=== PATIENT | male | born 1935 | race Caucasian/White ===

== ENCOUNTER → 2017-12-28 | Day surgery (SDC) | payer BC ==
[2017-12-11 14:37] VITALS: Ht 181.6 cm; Wt 92.3 kg
[~2017-12-28] VITALS: Ht 181.6 cm; Wt 92.3 kg
[~2017-12-28] MED LIST: ACETAMINOPHEN 325 MG TAB PO PRN; ASPI325T45 PO; ATROPINE SULFATE 0.1 MG/ML 5ML SYR IV PRN; BRIMONIDINE TART 0.2% OP SOLN PER DROP CHARGE ONE; BRIMONIDINE TARTRATE 0.2% 5ML ONE; BSS FLUSH ONE; DORZ1SOL6 OPB; EpHEDrine SULFATE INJ 50 MG/ML AMP IV PRN; LACTATED RINGER'S 1000ML 1,000 ML IV SCH; LATA0.5S OPB; LEVO150T9 PO; LIDOCAINE 3.5% OPH GEL PER APPLICATION CHARGE OPL SCH; LIDOCAINE 4% OP SOLN DROP CHARGE ONE; LIDOCAINE 4% OP SOLN DROP CHARGE OPL SCH; MIDAZOLAM HCL 1 MG/ML 2ML VIAL ONE; MOXIFLOXACIN OPH SOLN PER DROP CHARGE ONE; MOXIFLOXACIN OPH SOLN PER DROP CHARGE OPL SCH; MULT60CA PO; ONDANSETRON INJ 2 MG/ML 2 ML VIAL IV PRN; POVIDONE-IODINE OP SOLN 30 ML BTL ONE; PROPARACAINE 0.5% OP SOLN PER DROP CHARGE OPL SCH; SERT100T PO; SIMV20TA2 PO; TOBRAMYCIN/DEXAMETHASONE OPH OINT PER APPLN CHARGE ONE; VTMD1000 PO
[2017-12-28] MEDS: MOXIFLOXACIN OPH SOLN PER DROP CHARGE OPL SCH ×3 (09:55→10:18)
--- NOTE | 2017-12-28 10:21 | History & Physical Bridge - [place] ---
H&P Re-Evaluation Bridge Note: I have examined the patient, reviewed the History & Physical and in the interval since the performance of the History & Physical I have noted the following changes of clinical significance: No changes noted
--- NOTE | 2017-12-28 11:43 | [facility] Post Operative Brief Note ---
Immediate Operative Summary Operative Date Dec 28, 2017. Pre-Operative Diagnosis Left Eye Band Kenatopathy Post-Operative Diagnosis Same Procedure(s) Performed Left Eye Lamellar Keratectomy With EDTA Chelation Surgeon Dr. Turcios Hand Buffer Surgeon(s) none Estimated Blood Loss 0ml Findings Consistent with Post-Op Diagnosis Specimens none Drains None Anesthesia Type MAC Complication(s) none Disposition Accompanied Pt To Recovery: no Disposition: Recovery Room / PACU
--- NOTE | 2017-12-28 11:45 | Discharge Instructions-SurgCtr ---
Discharge Instructions Date of Service Dec 28, 2017. Visit Reason for Visit: Left Eye Band Kenatopathy Discharge Discharge Diagnosis / Problem: left eye calcific band keratopathy Discharge Goals Goal(s): Improve function Activity Recommendations Activity Limitations: per Instructions/Follow-up section Lifting Limitations: none Anesthesia . Post Anesthesia Instructions: If you have had General Anesthesia or IV Sedation: * Do not drive today. * Resume driving when surgeon permits. * Do not make important decisions or sign legal documents today. * Call surgeon for: 1. Temperature elevations greater than 101 degrees F. 2. Uncontrollable pain. 3. Excessive bleeding. 4. Persistent nausea and vomiting. 5. Medication intolerance (nausea, vomiting or rash). * For nausea and vomiting use only clear liquids such as: tea, soda, bouillon until nausea subsides, then gradually increase diet as tolerated. * If you have any concerns or questions, call your surgeon's office. If physician is unavailable and it is an emergency, call 911 or go to the nearest emergency room. . Instructions / Follow-Up Instructions / Follow-Up ACTIVITY RECOMMENDATIONS: * Light activities * You may walk outside, read, watch television. * Mild irritation and blurred vision are common for the first few days, redness around the white part of the eye is common. MEDICATIONS: Resume previous medications unless instructed otherwise by your surgeon. Eye drops (today and tomorrow): Ofloxacin - one drop operative eye 4 times daily Prednisolone 1% - one drop operative eye 4 times daily SPECIAL CARE INSTRUCTIONS: * If any problems or concerns, please call Dr. Turcios's office at . FOLLOW UP VISIT: Follow-up with Dr. Turcios in the [place] office as scheduled. If not already scheduled, please call the office at . Diet Recommendations Home Diet: resume previous diet Procedures Procedures Performed: Left Eye Lamellar Keratectomy With EDTA Chelation Pending Studies Studies pending at discharge: no Medical Emergencies . Who to Call and When: Medical Emergencies: If at any time you feel your situation is an emergency, please call 911 immediately. . Non-Emergent Contact Non-Emergency issues call your: Web Marketing Specialist . . "Provider Documentation" section prepared by Rahat Turcios. .
[2017-12-28 11:47] VITALS: TEMP 36.6
--- NOTE | 2017-12-28 12:02 | OPERATIVE REPORT ---
DATE OF OPERATION: 12/28/2017 PREOPERATIVE DIAGNOSIS: Calcific band keratopathy, left eye. POSTOPERATIVE DIAGNOSIS: Calcific band keratopathy, left eye. PROCEDURE PERFORMED: Lamellar keratectomy with EDTA chelation, left eye. COMPLICATIONS: None. ESTIMATED BLOOD LOSS: None. ANESTHESIA: Local with sedation. DESCRIPTION OF OPERATIVE REPORT: After informed consent was obtained in the holding area, the patient was taken back to the operating room where cardiac monitoring leads and oxygen by nasal cannula was administered by anesthesia. Gentle IV sedation was given. The patient's left eye was prepped and draped in usual sterile fashion. Wire lid speculum was placed in the left eye and the operating microscope swung into position. Using 0.12 forceps and a 57 [place] blade, the epithelium was reflected off of the corneal surface over the area of the calcific band keratopathy. Cut Weck-Francia sponges soaked in EDTA were then placed over the area of calcific band keratopathy over the course of approximately 45 minutes as the calcium was leached from the cornea. Once all the calcium was removed, the last piece of Weck-Francia sponge removed from the eye and copious amounts of BSS irrigation was done. A bandage contact lens was then placed on the eye. The wire lid speculum was then removed from the eye. A drop of Vigamox was placed on the eye. The patient tolerated the procedure well and was taken to recovery area in stable condition. I attest to the content of the Intraoperative Record and any orders documented therein. Any exception s are noted below.
--- NOTE | 2017-12-28 12:08 | Anesthesia Progress Nt - [facility] ---
Anesthesia Post Op Note Date & Time Dec 28, 2017 at 12:07 Vital Signs Pain Intensity: 4.0 Vital Signs Past 12 Hours Date Time Temp Pulse Resp B/P (MAP) Pulse Ox O2 Delivery O2 Flow Rate FiO2 12/28/17 11:47 36.6 62 18 129/81 (97) 97 Room Air 12/28/17 09:47 36.6 59 16 119/74 (89) 95 Room Air Notes Mental Status: alert / awake / arousable, participated in evaluation Pt Amnestic to Procedure: Yes Nausea / Vomiting: adequately controlled Pain: adequately controlled Airway Patency, RR, SpO2: stable & adequate BP & HR: stable & adequate Hydration State: stable & adequate Anesthetic Complications: no major complications apparent
[2017-12-28 12:12] VITALS: BP 120/77; PULSE 54; O2SAT 95
== END | disposition home or self-care (01) ==
LOC: X.SURG 09:33
PROVIDERS: ATTEND Ophthalmology
DX: H18.422 Band keratopathy, left eye (principal); E05.00 Thyrotoxicosis with diffuse goiter without thyrotoxic crisis or storm; E78.00 Pure hypercholesterolemia, unspecified; E78.5 Hyperlipidemia, unspecified; F32.9 Major depressive disorder, single episode, unspecified; Z83.511 Family history of glaucoma; E89.0 Postprocedural hypothyroidism; Z90.89 Acquired absence of other organs; Z79.82 Long term (current) use of aspirin; Z98.41 Cataract extraction status, right eye; Z98.42 Cataract extraction status, left eye